=== PATIENT | female | born 2000 | race Caucasian/White ===

== ENCOUNTER 2024-07-28 15:25 | Emergency (ER) | payer BC, SELFPAY ==
[2024-07-28 15:36] VITALS: BP 148/97; PULSE 96; RESP 14; TEMP 37.1; O2SAT 100
== END 2024-07-28 15:36 | disposition left against medical advice (07) ==
PROVIDERS: PCP Pediatrics
DX: M25.511 Pain in right shoulder (principal)
CPT/HCPCS: 99199